=== PATIENT | female | born 1960 | race Caucasian/White ===

== ENCOUNTER 2024-03-29 19:44 | Emergency (ER) | payer OTHER, SELFPAY ==
[2024-03-29 19:45] VITALS: BMI 37.0
[2024-03-29 19:53] VITALS: BP 128/81; PULSE 98; RESP 18; TEMP 36.6
--- NOTE | 2024-03-29 20:00 | PD.EDRME ---
Rapid Medical Screening Exam RME Arrival date/time: 03/29/24 19:44 64 year old female present to Ed for c/o right leg pain, hx of dvt I have greeted and performed a focused initial assessment of this patient. A comprehensive ED assessment and evaluation of the patient, analysis of all test results, and completion of the medical decision making process will be conducted by additional ED providers. Chief Complaint: Extremity Problem,Nontraumatic Vital signs: Vital Signs Temperature 98 F 03/29/24 19:53 Pulse Rate 98 03/29/24 19:53 Respiratory Rate 18 03/29/24 19:53 Blood Pressure 128/81 03/29/24 19:53 Oxygen Delivery Method Room Air 03/29/24 19:53
--- NOTE | 2024-03-29 20:01 | XR_ITS ---
Examination: Duplex scan of the lower extremity, unilateral right complete Date and time of exam: March 29, 2024 at 9:43 PM Indications: Right leg swelling and pain beginning 2 days ago k Technique: Duplex scan of the extremity veins using B-mode/grayscale imaging and Doppler spectral analysis and color flow Attention is directed to internal echogenicity, compression and augmentation involving these veins, color flow assessment, spectral analysis Findings: Acute deep vein thrombosis involving the entire lower extremity deep venous system Impression: Positive for acute thrombus involving the entire deep venous system right lower extremity
[2024-03-29 20:22] LABS: Basophils # (Auto) 0.1 Thou/mm3 (0.0-0.2); Basophils % (Auto) 1 % (0-2.5); Eosinophils # (Auto) 0.4 Thou/mm3 (0.0-0.5); Eosinophils % (Auto) 4 % (0-10); Hematocrit 39.3 % (36.0-46.0); Hemoglobin 12.9 g/dL (12.0-16.0); Immature Granulocytes % (Auto) 0 % (0-0); Immature Granulocytes Auto 0.03 Thou/mm3 (0.00-0.00); Lymphocytes # (Auto) 1.6 Thou/mm3 (1.0-4.8); Lymphocytes % (Auto) 17 % (10-50); Mean Corpuscular HGB Conc 32.8 g/dl (31.0-37.0); Mean Corpuscular Hemoglobin 30.7 pg (25.0-35.0); Mean Corpuscular Volume 94 fL (80-100); Monocytes # (Auto) 0.9 Thou/mm3 (0.0-0.8); Monocytes % (Auto) 10 % (0-12); Neutrophils # (Auto) 6.5 Thou/mm3 (1.8-7.7); Neutrophils % (Auto) 69 % (37-80); Nucleated Red Blood Cell % 0 /100 WBC (0); Platelet Count 125 Thou/mm3 (140-440); RDW Standard Deviation 47.7 fL (36.4-46.3); White Blood Count 9.5 Thou/mm3 (3.6-11.0)
[2024-03-29 20:34] LABS: Prothrombin Time 11.1 Seconds (9.0-12.2)
--- NOTE | 2024-03-29 20:44 | EDNOTE_ITS ---
<Statement entered by Akiko Philippe MD - 03/30/24 22:05> As co-signing physician, I was present and available for consult prn. I concur with the plan and care as documented by the midlevel provider. ED Extremity Problem RME/HPI General Chief complaint: Extremity Problem,Nontraumatic Stated complaint: RIGHT LEG SWELLING X 2 DAYS Time Seen by Provider: 03/29/24 20:40 Arrival date/time: 03/29/24 19:44 RME / HPI RME / HPI Narrative: 64-year-old female patient with significant history of COPD, DVT in the past, came in for evaluation regarding right lower extremity swelling. This been ongoing for the last 2 days, getting worse, severity moderate. Patient also complained of discomfort. Patient denies any redness. Denies any chest pain denies any shortness of breath. Patient denies any other complaints no medication was taken prior to arrival. Related Data Previous Rx's ?Medication ?Instructions ?Recorded ibuprofen 600 mg tablet 600 mg PO Q6H #30 tabs 04/27/19 apixaban 5 mg tablet (Eliquis) 5 mg PO BID #60 tabs 03/29/24 apixaban 5 mg tablet (Eliquis) 10 mg (2 x 5 mg) PO BID 7 days #28 03/29/24 tabs Allergies Allergy/AdvReac Type Severity Reaction Status Date / Time Penicillins Allergy Severe STOPS Verified 03/29/24 19:46 BREATHING DUST Allergy Severe Swelling Uncoded 03/29/24 19:46 of Lip/Tongue/Throat ORANGE BLOSSOMS Allergy Severe Swelling Uncoded 03/29/24 19:46 of Lip/Tongue/Throat Review of Systems Review of Systems Narrative Review of Systems: Review of system reviewed and within normal limits except mentioned in HPI ED Exam Narrative Physical exam: VITAL SIGNS: Reviewed. GENERAL APPEARANCE: Alert and interactive, follows commands, no acute distress, HEAD AND FACE: Non-traumatic. ENT: PERRL, pink conjunctivitis, eyelid no trauma, Mucous membrane moist. NECK: Supple, nontender, no nuchal rigidity. CHEST: No tenderness, no crepitus, no paradoxical movement, no retractions. LUNGS: Clear, well ventilated, symmetric, no rales, no wheezing, no ronchi, no stridor, good breath sounds bilaterally. HEART: Regular rate, regular rhythm, no murmur, no gallops. ABDOMEN: Soft, positive bowel sounds, nondistended, no guarding, nontender, no rebound, no masses, RECTAL: Deferred. GENITAL: Deferred. NEUROLOGICAL: Gross motor function intact sensory function intact, Appropriate for age. MUSCULOSKELETAL: low back nontender, full range of motion. EXTREMITIES: Right lower extremity swelling, with tenderness on the medial aspect of the thigh, no redness noted, full range of motion. SKIN: Color pink, dry, no rash, no lacerations, no abrasions, no contusions. LYMPHATICS: Deferred. Course Quality Measures none Orders Category Date Time Status US venous duplex LE RT Stat Exams 03/29/24 20:01 Completed CBC Stat Lab 03/29/24 20:10 Completed CMP [Comprehensive Metabolic Panel] Stat Lab 03/29/24 20:10 Completed INR [Prothrombin Time with INR] Stat Lab 03/29/24 20:10 Completed Apixaban [Eliquis] Med 03/29/24 22:40 Discontinued 10 mg PO X1 ONE Vital Signs Vital signs: Vital Signs Temperature 98 F 03/29/24 19:53 Pulse Rate 98 03/29/24 19:53 Respiratory Rate 18 03/29/24 19:53 Blood Pressure 128/81 03/29/24 19:53 Oxygen Delivery Method Room Air 03/29/24 19:53 Extremity Problem MDM Narrative MDM Narrative:: 64-year-old female patient with significant history of COPD, DVT in the past, came in for evaluation regarding right lower extremity swelling. This been ongoing for the last 2 days, getting worse, severity moderate. Patient also complained of discomfort. Patient denies any redness. Denies any chest pain denies any shortness of breath. Patient denies any other complaints no medication was taken prior to arrival. Patient's laboratory workup all came back normal today ultrasound of the lower extremity showed DVT to the right lower extremity. Patient data External records reviewed:: None Clinical information provided by:: patient Social determinants that could affect healthcare access:: none Patient has the following chronic illnesses:: COPD, history of DVT How is presenting disease/condition affected by chronic disease/condition?: exacerbated by Evaluation data The following diagnostics were reviewed and interpreted by me:: lab results and radiology exam(s) Lab and/or radiology exams considered but not ordered:: None Interpretation Summary: Ultrasound of the lower extremity showed Positive for acute thrombus involving the entire deep venous system right lower extremity Medications / Prescriptions Medications or Prescriptions considered but not ordered:: None Medication administrations:: Medication Administration History Discontinued Medications Apixaban (Apixaban 2.5 Mg Tablet) 10 mg PO X1 ONE Stop: 03/29/24 22:41 Last Admin: 03/29/24 22:56 Dose: 10 mg Eliquis 10 mg p.o. x 1 Consultations Consultation(s) initiated? (list below): No Diagnosis Extremity Problem Differential Diagnosis: superficial thrombophlebitis and deep vein thrombosis of lower extremity Most likely diagnosis given after review of the tests above:: DVT lower extremity Admission Indicated Admission indicated?: not indicated Explain why admission is indicated or not indicated:: Stable Admission Request Was there a request for admission?: No Disposition Plan Disposition Plan: Discharge Discharge Attestation Discharge Attestation: The patient and all family members were given an opportunity to ask questions and understood the discharge instructions. Discharge instructions specifically effects, indications for sooner follow up or return to the emergency department, and the expected course of current diagnosis. Patient condition: Stable Discharge Plan Plan Patient Disposition: HOME (Self Care) Disposition Comment: stable Prescriptions/Referrals Prescriptions/Med Rec: New Eliquis 5 mg tablet 10 mg PO BID 7 Days Qty: 28 0RF Eliquis 5 mg tablet 5 mg PO BID Qty: 60 0RF No Action ibuprofen 600 mg tablet 600 mg PO Q6H Qty: 30 0RF Referrals: Viri Juarez MD [Primary Care Provider] - In 1 week Problem List Clinical Impression: Deep vein thrombosis of lower extremity Patient/Caregiver Discharge Instructions Discharge Activity: activity as tolerated Education Materials: DVT Dc, Compression Stockings Thigh Steps Additional Instructions: Thank you for the opportunity for serving you today. You are stable for discharged . You are advised to: Follow-up with your PCP in 1 to 2 days Return to ED for worsening of symptoms Increase oral fluids Take medication as prescribed take your Eliquis starting tomorrow, 10 mg twice a day for 7 days then decrease it to 5 mg twice a day for the next several weeks until stopped by your PCP Wear compression stockings as instructed Elevate legs as needed, do not massage your lower extremity as instructed Print Language: Cuban Stand Alone Forms: Katie Award Info., Work/School Release, Patient Portal Info Letter JOHNNY/STEVEN Supervising Physician JOHNNY/STEVEN Supervising Physician: MD Woo
[2024-03-29 20:54] VITALS: BP 126/78; PULSE 86; RESP 17; TEMP 36.8; O2SAT 97
[2024-03-29 20:58] LABS: Alanine Aminotransferase 14 U/L (10-49); Albumin, Serum 4.3 gm/dL (3.4-4.8); Albumin/Globulin Ratio 1.9 (1.2-2.2); Alkaline Phosphatase 76 U/L (46-116); Anion Gap 5 (7-16); Aspartate Amino Transferase 18 U/L (0-34); BUN/Creatinine Ratio 19 Ratio (12-20); Bilirubin,Total 0.5 mg/dL (0.3-1.2); Blood Urea Nitrogen 19 mg/dL (9-23); Carbon Dioxide 24.8 mMol/L (20.0-31.0); Chloride 110 mMol/L (98-107); Estimated Creatinine Clearance 62.9 mL/min (>60); Globulin 2.3 gm/dL (2.3-3.5); Glucose 119 mg/dL (74-106); Osmolality,Calculated 282 (275-295); Potassium 4.1 mMol/L (3.4-5.1); Sodium 140 mMol/L (136-145); Total Protein 6.6 gm/dL (5.7-8.2); eGFR > 60 See Note
[2024-03-29 21:00] VITALS: BP 114/64; PULSE 84; RESP 19; O2SAT 94
[2024-03-29 22:00] VITALS: BP 118/73; PULSE 85; RESP 17; O2SAT 94
[2024-03-29] MEDS: APIXABAN 2.5 MG TABLET 10 MG PO (22:56)
[2024-03-29 23:01] VITALS: BP 127/82; PULSE 83; RESP 18; O2SAT 96
== END 2024-03-29 23:18 | disposition home or self-care (01) ==
PROVIDERS: Physician Assistant; Emergency Provider Emergency Medicine; PCP Internal Medicine
DX: I82.4Z1 Acute embolism and thrombosis of unspecified deep veins of right distal lower extremity (principal)
CPT/HCPCS: 36415; 80053; 85025; 85610; 93971; 99284; A9270